=== PATIENT | female | born 1995 | race Caucasian/White ===

== ENCOUNTER 2023-10-10 16:56 | Emergency (ER) | payer MEDICAID, SELFPAY ==
[2023-10-10 17:00] VITALS: BP 139/89; PULSE 108; RESP 20; TEMP 36.7; O2SAT 98
[2023-10-10 17:02] VITALS: BP 139/89; PULSE 108; RESP 20; TEMP 36.7; O2SAT 98
--- NOTE | 2023-10-10 17:20 | ED.GENADUL_ITS ---
Discharge Plan Disposition Patient Disposition: Home Condition: Stable Discharge Details Clinical Impression: Pharyngitis Primary Care Provider: Shama Serrano ED Provider: Bushra Baker Home Meds and New Rx's Prescriptions: New clindamycin HCl 150 mg capsule 300 mg PO TID 7 Days Qty: 42 0RF Continued PNV cmb#95-ferrous fumarate-FA [ Multivitamins] 28 mg iron- 800 mcg t ablet 1 tab PO DAILY ferrous sulfate [Iron (ferrous sulfate)] 325 mg (65 mg iron) tablet 325 mg PO DAILY [id number] Tablet, Effervescent 1 tab PO PRN (Reason: sore throat) Discharge Instructions Instructions: Pharyngitis (ED) Additional Instructions: Rapid strep negative, however will treat you with Clindamycin. Take with yogurt or probiotic daily. Gargle with warm salt water up to 3 times daily as needed. You may continue take Tylenol or similar for pain. Follow up with primary care provider in 3-5 days. Return to ED sooner if any worsening or concerns. Increase oral fluids. Discharge Data Discharge Date/Time-TO BE ENTERED AT DEPARTURE: 10/10/23 17:43 HPI General Mode of arrival: ambulatory . Date/Time Provider Initiated Documentation: 10/10/23 16:59 . Limitations to Documentation: no limitations . Information obtained by: patient, RN notes reviewed and old records reviewed . History of Present Illness Quality is described as burning and constant, and is localized to the mouth (Throat). Patient started experiencing this day(s) (4) and it has been constant. Medication improves symptom(s), ([place] cold ) Eating worsens symptoms and Other factors that worsen symptoms (Swallowing) . Patient notes cough and other (Congestion, sinus pressure). Patient did receive the following treatments prior to arrival, NSAID (Tylenol) and Aspirin HPI Narrative: 27 year old female presents with sore throat for the last 4 days, change of voice, has been taking OTC [place] seltzer which seems to help, patient is approx 29 weeks. Denies any fever or chills. She also reports some sinus pressure. She has had previous strep throat before. No other associated symptoms or concerns. Related Data Home Medications Medication Instructions Recorded Confirmed clindamycin HCl 150 mg capsule 300 mg (2 x 150 mg) PO TID 7 days 10/10/23 #42 caps ysh-eejeiewtdxfanrozbzx-IY-ASA 1 tab PO PRN sore throat 10/10/23 effervescent tablet ferrous sulfate 325 mg (65 mg 325 mg PO DAILY 10/10/23 10/10/23 iron) tablet (Iron (ferrous sulfate)) vit no.95-ferrous 1 tab PO DAILY 10/10/23 10/10/23 fumarate 28 mg-folic acid 800 mcg tablet ( Multivitamins) Previous Rx's Medication Instructions Recorded clindamycin HCl 150 mg capsule 300 mg (2 x 150 mg) PO TID 7 days 10/10/23 #42 caps Allergies Allergy/AdvReac Type Severity Reaction Status Date / Time Penicillins Allergy Severe Anaphylaxis Unverified 10/10/23 17:23 General Stated Complaint: RespSymp SERGIO: 3 Review of Systems ENT Ears, Nose, Mouth, and Throat: Reports sinus pressure, Reports sore throat and Reports throat swelling Cardiovascular Cardiovascular: Denies chest pain Respiratory Respiratory: Reports chest congestion and Reports cough Allergic/Immunologic Allergic/Immunologic: Reports throat swelling Exam Narrative Exam Narrative: Constitutional: Alert and oriented x3. Appears stated age. Normal body habitus. Head: Normocephalic, no trauma. Eyes: Pupils PERRL, Red reflex noted, EOM's intact. Eyelids symmetrical without lesions, discharge, or swelling. ENT: Bilateral TM's WNL, External ear normal to inspection, no mastoid TTP, swelling, or erythema, Nasal turbinates WNL, no nasal discharge. Normal dentition, Posterior pharynx erythemic, tonsils 2+, no exudate. Chest: RRR, Normal S1, S2, distal pulses intact. Resp: Lungs clear to auscultation bilaterally, no wheezes, rales, or rhonchi. Course Vital Signs Vital signs: Vital Signs Temperature 36.7 C 10/10/23 17:00 Pulse 108 H 10/10/23 17:00 Respiratory Rate 20 10/10/23 17:00 Blood Pressure 139/89 10/10/23 17:00 Pulse Oximetry 98 10/10/23 17:00 Temperature 36.7 C 10/10/23 17:02 Temperature Source Oral 10/10/23 17:02 Pulse 108 H 10/10/23 17:02 Respiratory Rate 20 10/10/23 17:02 Respiratory Effort Normal, Non-Labored 10/10/23 17:02 Respiratory Depth Normal 10/10/23 17:02 Blood Pressure 139/89 10/10/23 17:02 Blood Pressure Position Sitting 10/10/23 17:02 Pulse Oximetry 98 10/10/23 17:02 Oxygen Delivery Method Room Air 10/10/23 17:02 Pain Level 4 10/10/23 17:02 Lab/Test Results Lab/Test Results: POC Strep Test-MAVIS(Rapid) Start: 10/10/23 16:59 Freq: .Rapid Strep Test Status: Active Protocol: Document 10/10/23 17:19 ANNIE (Rec: 10/10/23 17:19 ANNIE [id number]) Strep test-MAVIS(Rapid)-POC POC-Strep test-MAVIS (Rapid) Negative POC-Strep test-MAVIS (Rapid) Negative Medical Decision Making 27 year old female presents with sore throat for the last 4 days, change of voice, has been taking OTC kor[place] seltzer which seems to help, patient is approx 29 weeks. Denies any fever or chills. She also reports some sinus pressure. She has had previous strep throat before. No other associated symptoms or concerns. Rapid strep negative. Patient is allergic to penicillin. She reports that she routinely gets negative rapid strep swabs. Tonsils are 2+ bilaterally and erythemic no exudate noted. She is approximately 29 weeks G3 para 4. Will give clindamycin 300 mg TID first dose here now. Patient given discharge instructions and follow-up care. Instructed to gargle with warm salt water. Insert dragon. Quality:SDOH Health Related Social Needs: No Data to Display PFSH All Active Problems (Updated 10/10/23 @ 17:25 by Bushra Baker NP) Pharyngitis (Acute) Social History Smoking risk assessment performed?: No
[2023-10-10] MEDS: Clindamycin 300 MG CAP PO (17:39)
[2023-10-10 17:42] VITALS: BP 139/89; PULSE 90; RESP 20; TEMP 36.7; O2SAT 98
== END 2023-10-10 17:43 | disposition home or self-care (01) ==
LOC: ER 17:51
PROVIDERS: Emergency Provider Registered Nurse Emergency; PCP Naturopath
DX: J02.9 Acute pharyngitis, unspecified (principal)
CPT/HCPCS: 87880; 99283; 87081